=== PATIENT | female | born 1955 | race Caucasian/White ===

== ENCOUNTER → 2016-09-19 | Outpatient (CLI) | payer OTHER ==
[~2016-09-19] MED LIST: IOPAMIDOL (ISOVUE-370) 150 ML BTL IV ONE
== END ==
LOC: FIMAGING 08:48
PROVIDERS: ATTEND Internal Medicine Cardiovascular Disease
DX: I48.91 Unspecified atrial fibrillation (principal); I71.2 Thoracic aortic aneurysm, without rupture; K80.20 Calculus of gallbladder without cholecystitis without obstruction; N28.1 Cyst of kidney, acquired; M43.24 Fusion of spine, thoracic region; R91.8 Other nonspecific abnormal finding of lung field
CPT/HCPCS: Q9967

== ENCOUNTER 2016-09-26 11:02 | Observation (INO) | payer OTHER ==
[2016-09-26] MEDS ORDERED: NS 1,000 ML IV ONE (11:09)
[2016-09-26] MEDS ORDERED: MIDAZOLAM 2 MG/2 ML VIAL IVP ONE (11:09)
--- NOTE | 2016-09-26 11:32 | CPEKG ---
Heart Rate: 70 RR Interval: 857 P-R Interval: 184 QRSD Interval: 96 QT Interval: 396 QTC Interval: 428 P [place]: 55 QRS [place]: 24 T Wave [place]: 62 EKG Severity - BORDERLINE ECG - EKG Impression: SINUS RHYTHM EKG Impression: BORDERLINE INFERIOR Q WAVES EKG Impression: SINUS RHYTHM HAS REPLACED ATRIAL FIBRILLATION FROM PRIOR (01-JUN-2016) Electronically Signed By: Junaid Stovall 26-Sep-2016 16:44:31
[2016-09-26] MEDS ORDERED: fentaNYL 250 MCG/5 ML INJ ONE (11:41)
[2016-09-26] MEDS ORDERED: REMIFENTANIL HCL 1 MG VIAL ONE (11:41)
[2016-09-26 11:42] LABS: % IMMATURE GRANULYOCYTES 0.2 % (0.0-1.1); ABSOLUTE IMMATURE GRANULOCYTES 0.02 10^3/uL (0.00-0.10); ADD DIFF? NO; ADD MORPH? NO; ADD SCAN? NO; ATYPICAL LYMPHOCYTE FLAG 0 (0-99); FRAGMENT RBC FLAG 0 (0-99); HEMATOCRIT 48.5 % (38.0-47.0); LEFT SHIFT FLG 0 (0-99); LIPEMIA HEMOLYSIS FLAG 90 (0-99); MEAN CELL HEMOGLOBIN 32.6 pg (27.9-34.1); MEAN CELL HEMOGLOBIN CONCENTR. 35.1 g/dL (32.4-36.7); MEAN CELL VOLUME 93.1 fL (81.5-99.8); MEAN PLATELET VOLUME 10.5 fL (8.7-11.7); PLATELET CLUMPS FLAG 20 (0-99); PLATELET COUNT 218 10^3/uL (150-400); RED BLOOD CELL COUNT 5.21 10^6/uL (4.18-5.33); RED CELL DISTRIBUTION WIDTH 12.5 % (11.5-15.2)
[2016-09-26] MEDS ORDERED: PROPOFOL/EMULSION 500 MG/50 ML BOTTLE IV ONE (11:42)
[2016-09-26] MEDS ORDERED: ROCURONIUM 50 MG/5 ML VIAL ONE (11:43)
[2016-09-26] MEDS ORDERED: HEPARIN/DEXTROSE 25,000 UNIT/500 ML BAG IV ONE (11:49)
[2016-09-26] MEDS ORDERED: BUPIVACAINE 0.5% 30 ML SDV ONE (11:50)
[2016-09-26] MEDS ORDERED: LIDOCAINE 1% 30 ML SDV ONE (11:50)
[2016-09-26] MEDS ORDERED: HEPARIN 10,000 UNIT/10 ML MDV ONE (11:50)
[2016-09-26 11:51] LABS: INR 0.95 (0.83-1.16); PROTIME(PATIENT) 12.6 SEC (12.0-15.0)
[2016-09-26 11:52] LABS: APTT 26.3 SEC (23.0-38.0)
[2016-09-26 12:00] LABS: ANION GAP 11 mEq/L (8-16); CALCIUM 9.7 mg/dL (8.5-10.4); CARBON DIOXIDE 23 mEq/l (22-31); CHLORIDE 108 mEq/L (97-110); CREATININE 0.7 mg/dL (0.6-1.0); GLOMERULAR FILTRATION RATE > 60; GLUCOSE 93 mg/dL (70-100); POTASSIUM 4.3 mEq/L (3.5-5.2); SODIUM 142 mEq/L (134-144)
[2016-09-26] MEDS ORDERED: SUGAMMADEX SODIUM 200 MG/2 ML VIAL IVP ONE (13:49)
[2016-09-26] MEDS ORDERED: PROTAMINE SULFATE 50 MG/5 ML VIAL IVP ONE (13:49)
[2016-09-26] MEDS ORDERED: ACETAMINOPHEN 325 MG TAB PO PRN (14:13)
[2016-09-26] MEDS ORDERED: OXYCODONE/APAP 5/325 TAB PO PRN (14:13)
[2016-09-26] MEDS ORDERED: ONDANSETRON 4 MG/2 ML VIAL IVP PRN (14:13)
[2016-09-26] MEDS ORDERED: MELATONIN 3 MG TAB PO PRN (14:15)
--- NOTE | 2016-09-26 14:20 | EPPROC ---
Electrophysiology Procedure Note: ELECTROPHYSIOLOGIC STUDY AND BALLOON-CATHETER MEDIATED CRYOABLATION FOR PAROXYSMAL ATRIAL FIBRILLATION Procedures performed: 09806-82 EP evaluation with RA/RV/LA pace/record, with arrhythmia induction 97094-23 EP evaluation with RA/RV pace record, insert/reposition catheter, with arrhythmia induction 15993 Atrial fibrillation ablation Intracardiac echocardiogram Transseptal puncture Fluoroscopy INDICATION: Paroxysmal atrial fibrillation PROCEDURE: The patient arrived in the Electrophysiology Laboratory in the fasting state. The right groin, left groin and right infraclavicular area were prepped and draped in the usual sterile fashion. Anesthesiologist administered general anesthesia Dr. Alhaji Xie . All catheters were placed percutaneously using the Seldinger technique and advanced into position under fluoroscopic guidance. One #7 Kyr[place]z deflectable octapolar electrode catheter was placed in the His-bundle position via the left femoral vein (2mm spacing, IVC electrode for unipolar recordings). This catheter was placed in the coronary sinus after transseptal puncture and later placed in the SVC-R subclavian vein junction to pace the right phrenic nerve during right pulmonary vein ablation. One #8 [place] AcuNaV ultrasound catheter was placed in the left femoral vein and advanced into the right atrium. One #4 [place] sheath was inserted into the left femoral artery via percutaneous technique and used for continuous arterial blood pressure monitoring and intermittent ACT determination. Programmed stimulation was performed from the right atrium, left atrium (CS) and right ventricle. There was no evidence of AV accessory pathway. Intracardiac echo evaluation of the left atrium and pulmonary veins was performed. Baseline ACT was drawn and heparin bolus was administered and heparin drip was started prior to transseptal puncture. ACT was checked every 15 minutes and maintained in the range of 350-400 seconds. One 14Fr short sheath was placed in the right femoral vein. One 8Fr SL1 sheath was advanced into the right atrium via the 14Fr short sheath. Transseptal puncture was performed under intracardiac ultrasound, fluoroscopic and hemodynamic guidance placing the sheath into the left atrium. [place] RF needle ( C0 curve) was used. The mean left atrial pressure was 12 mmHg. Pulmonary vein angiogram was done using SL1 sheath. CT angiography of pulmonary veins was done previously. There were distinct LSPV, LIPV, RSPV and RIPV. The SL1 sheath was exchanged for a CoachMePlustronic Flexcath sheath using an Amplatz stiff guide wire. A 28 mm Cryoballoon catheter with a 20 mm Achieve catheter was placed via the sheath into the left atrium. Intracardiac ultrasound and PV angiograms were used to assist in placing the mapping catheter at the antrum of the pulmonary veins. All pulmonary veins were isolated successfully using cryoballoon ablation using freeze/thaw/freeze cycles at 2-3-minute intervals, with good [id number]-zmkwal of isolation. Coumadin ridge/Ligament of Elliott region was ablated. Pre and post pulmonary vein recordings were measured on the spiral Achieve catheter to ensure complete pulmonary vein isolation. During the right-sided ablation, phrenic nerve pacing was performed to assess the phrenic nerve strength ( manually and with ICE visualization of liver movement during phrenic capture) and the phrenic nerve was intact throughout the right-sided ablation and at the end of the procedure. An esophageal temperature probe (12 electrode, Circa) was placed by the anesthesiologist at the beginning of the procedure. Esophageal temperature was monitored continuously and cryoablation was interrupted if esophageal temperature was <15 C. Esophagus was closest to LSPV, lowest temperature 22C. Cryoapplications 4 total cryoablation time 720s. ICE imaging post ablation was consistent with pre ablation imaging with no changes noted, moreover there was no left atrial/left ventricular thrombus and no pericardial effusion. The catheters were withdrawn. Protamine was given. The sheaths were removed and manual pressure was used for hemostasis. The patient was recovered from anesthesia. There were no complications. The patient was arousable and moving all four extremities at the end of the procedure. CONCLUSIONS: 1. Paroxysmal atrial fibrillation. 2. Successful pulmonary vein isolation procedure (left and right pulmonary vein antrum) using cryoballoon ablation. 3. No apparent complications. Patient Problems: Problems Problem Status Onset Paroxysmal a-fib Acute
--- NOTE | 2016-09-26 14:36 | CPEKG ---
Heart Rate: 76 RR Interval: 789 P-R Interval: 144 QRSD Interval: 102 QT Interval: 424 QTC Interval: 477 P [place]: 48 QRS [place]: 57 T Wave [place]: 76 EKG Severity - NORMAL ECG - EKG Impression: SINUS RHYTHM Electronically Signed By: Junaid Stovall 26-Sep-2016 16:44:37
[2016-09-26 15:05] LABS: ANION GAP 7 mEq/L (8-16); CALCIUM 8.1 mg/dL (8.5-10.4); CARBON DIOXIDE 23 mEq/l (22-31); CHLORIDE 110 mEq/L (97-110); CREATININE 0.7 mg/dL (0.6-1.0); GLOMERULAR FILTRATION RATE > 60; GLUCOSE 140 mg/dL (70-100); MAGNESIUM 1.7 mg/dL (1.6-2.3); POTASSIUM 3.9 mEq/L (3.5-5.2); SODIUM 140 mEq/L (134-144)
[2016-09-26] MEDS ORDERED: FLUTICASONE NASAL 120 SPRAYS/16 GM MDI EACHNARE SCH (21:00)
[2016-09-26 23:41] VITALS: TEMP 98.4
[2016-09-27] MEDS: ENOXAPARIN 80 MG/0.8 ML SYR SC SCH ×2 (04:31→04:32)
[2016-09-27 04:50] LABS: % IMMATURE GRANULYOCYTES 0.3 % (0.0-1.1); ABSOLUTE IMMATURE GRANULOCYTES 0.04 10^3/uL (0.00-0.10); ADD DIFF? NO; ADD MORPH? NO; ADD SCAN? NO; ATYPICAL LYMPHOCYTE FLAG 0 (0-99); FRAGMENT RBC FLAG 0 (0-99); HEMATOCRIT 42.1 % (38.0-47.0); HEMOGLOBIN 14.6 g/dL (12.6-16.3); LEFT SHIFT FLG 0 (0-99); LIPEMIA HEMOLYSIS FLAG 90 (0-99); MEAN CELL HEMOGLOBIN 32.9 pg (27.9-34.1); MEAN CELL HEMOGLOBIN CONCENTR. 34.7 g/dL (32.4-36.7); MEAN CELL VOLUME 94.8 fL (81.5-99.8); MEAN PLATELET VOLUME 10.7 fL (8.7-11.7); PLATELET CLUMPS FLAG 0 (0-99); PLATELET COUNT 222 10^3/uL (150-400); RED BLOOD CELL COUNT 4.44 10^6/uL (4.18-5.33); RED CELL DISTRIBUTION WIDTH 12.8 % (11.5-15.2)
[2016-09-27 04:59] LABS: INR 0.97 (0.83-1.16); PROTIME(PATIENT) 12.8 SEC (12.0-15.0)
[2016-09-27 05:25] LABS: ANION GAP 11 mEq/L (8-16); CALCIUM 9.3 mg/dL (8.5-10.4); CARBON DIOXIDE 20 mEq/l (22-31); CHLORIDE 108 mEq/L (97-110); CREATININE 0.6 mg/dL (0.6-1.0); GLOMERULAR FILTRATION RATE > 60; GLUCOSE 124 mg/dL (70-100); POTASSIUM 4.6 mEq/L (3.5-5.2); SODIUM 139 mEq/L (134-144)
[2016-09-27 05:36] LABS: CK-MB INTERPRETATION POSITIVE (NEGATIVE)
[2016-09-27] MEDS ORDERED: LEVOTHYROXINE 112 MCG TAB PO SCH (06:00)
--- NOTE | 2016-09-27 08:40 | CPEKG ---
Heart Rate: 76 RR Interval: 789 P-R Interval: 180 QRSD Interval: 100 QT Interval: 400 QTC Interval: 450 P [place]: 53 QRS [place]: 56 T Wave [place]: 79 EKG Severity - BORDERLINE ECG - EKG Impression: SINUS RHYTHM EKG Impression: BORDERLINE INFERIOR Q WAVES Electronically Signed By: Junaid Stovall 27-Sep-2016 12:01:40
[2016-09-27] MEDS ORDERED: CETIRIZINE 10 MG TAB PO SCH (09:00)
[2016-09-27] MEDS ORDERED: METOPROLOL SUCCINATE XR 50 MG TAB PO SCH (09:00)
--- NOTE | 2016-09-27 09:19 | ECHO ---
[id number] + + [address] : : [place] [address] : : [phone] + Adult Echocardiographic Report + -----+ :Name: KIMBERLEY PATINO WStudy Date: 09/27/2016 07:43 AM : : Hospital Admission Number: [id number] Location : 247: :: 1955 Gender: Female Height: 78 in : :Age: 61 yrs Race: WH Weight: 160 lb : :Reason For Study: F/U post EP study : : BSA: 2.1 meters2 : + -----+ MMode/2D Measurements \T\ Calculations IVSd: 0.77 cm LVIDd: 4.4 cm EDV(Teich): 86.0 ml MV Diam: 3.1 cm LVPWd: 0.83 cm Ao root diam: LVOT diam: 2.1 cmLVLd ap4: 7.8 cm SV(MOD-sp4): 3.9 cm LVOT area: EDV(MOD-sp4): 52.0 ml LA dimension: 3.4 cm2 71.0 ml 4.4 cm LVLs ap4: 6.2 cm ESV(MOD-sp4): 19.0 ml EF(MOD-sp4): 73.2 % Normal Measurement Values: + + :LVIDd (3.5-5.7cm) IVSd (0.6-1.1cm) LVPWd (0.6-1.1cm) Aortic Root (2.0-3.7cm)Left Atrium (1.5-4.0cm): :LV Vol(d) (76-115ml) LV Vol(s) (29-48ml) [place]ec Fraction (50-65%)PV Silas (0.6- 1.2m/s) TV Silas (0.4-1.0m/s) : :MV E Silas (0.8-1.0m/s)MV A Silas (0.3-1.0m/s)LVOT Silas (0.7-1.2m/s) Asc Ao Silas ( 0.9-1.8m/s) : + + Doppler Measurements \T\ Calculations MV E max silas: MV V2 mean: Ao mean PG: AI max silas: 71.8 cm/sec 56.2 cm/sec 7.7 mmHg 440.9 cm/sec MV A max silas: MV mean PG: Ao V2 mean: AI max P.1 cm/sec 1.4 mmHg 133.0 cm/sec 77.7 mmHg MV E/A: 0.90 MV V2 VTI: 22.8 cm Ao V2 VTI: AI dec slope: MV area (1 diam): 40.7 cm 272.4 cm/sec2 7.5 cm2 RODRIGO(I,D): 2.4 cm2 AI P1/2t: 474.1 msec MVA(VTI): 4.3 cm2 MV Flow area (1diam): 7.5 cm2 LV V1 max: MR max silas: MR(RF 1 diam): SV(MV 1 diam): 112.4 cm/sec 513.3 cm/sec 11.7 % 171.2 ml LV V1 max PG: MR max PG: SI(MV 1 diam): 5.1 mmHg 105.4 mmHg 83.4 ml/m2 LV V1 mean PG: SV(LVOT): 97.7 ml 3.3 mmHg LV V1 mean: 86.6 cm/sec LV V1 VTI: 28.5 cm TR max silas: RF(MV,Ao)(1 diam): 203.6 cm/sec -1.8 TR max PG: RF(MV,LVOT)(1diam): 16.6 mmHg 0.43 RAP systole: 5.0 mmHg RVSP(TR): 21.6 mmHg Left Ventricle The left ventricle is normal in size. There is normal left ventricular wall thickness. Left ventricular systolic function is normal. Ejection Fraction = 65-70%. No regional wall motion abnormalities noted. Right Ventricle The right ventricle is normal in size and function. Atria The left atrium is mildly dilated. Right atrial size is normal. The interatrial septum is intact with no evidence for an atrial septal defect. Mitral Valve The mitral valve is normal in structure and function. There is no evidence of mitral valve prolapse. There is no mitral valve stenosis. There is mild to moderate mitral regurgitation. Tricuspid Valve Normal tricuspid valve. There is mild tricuspid regurgitation. Right ventricular systolic pressure is normal. Aortic Valve The aortic valve is trileaflet. The aortic valve opens well. There is no aortic stenosis. Grade 3 aortic regurgitation. Moderate AI by color flow doppler (LV normal size). Pulmonic Valve The pulmonic valve is normal in structure and function. There is no pulmonic valvular regurgitation. Great Vessels The aortic root is normal size. Mildly dilated ascending aorta. Pericardium/Pleural There is no pericardial effusion. Conclusion A complete two-dimensional transthoracic echocardiogram was performed (2D, M-mode, Doppler and color flow Doppler). Lefft ventricular systolic function is normal. Ejection Fraction = 65-70%. The left atrium is mildly dilated. There is mild to moderate mitral regurgitation. There is mild tricuspid regurgitation. Right ventricular systolic pressure is normal. Mildly dilated ascending aorta. Moderate AI . There is no pericardial effusion. Final Reading Physician: Sabino Ma MD electronically signed on 09/27/2016 09:18 AM Ordering Physician: Sabino Ma Performed By: Adamaris Gallagher, [facility]
[2016-09-27 10:08] VITALS: BP 118/53; PULSE 66; RESP 18; O2SAT 92
--- NOTE | 2016-09-27 12:52 | GDS ---
[f rep st] DISCHARGE SUMMARY DISCHARGE DIAGNOSES: 1. Paroxysmal atrial fibrillation, status post cryoballoon ablation. 2. Ascending aortic aneurysm, measuring 4.4 cm. 3. Moderate aortic insufficiency. HOSPITAL COURSE: For a detailed H and P, please see prior dictation. Briefly, the patient is a 61- year-old female with a history of paroxysmal atrial fibrillation which is symptomatic. Her events w ould last anywhere between 6 and 8 hours. She had a trial of metoprolol, but was not interested and antiarrhythmic therapy. Ultimately, she decided to proceed with an EP study and ablation which was performed by Dr. Sabino Ma on 09/26/2016. She did not have any complications associated with the procedure except for some very minor bleeding of her right groin a few hours postprocedure. There w as no evidence of hematoma or infection of the groin site the following morning. She was monitored on telemetry and has remained in normal sinus rhythm. Her troponin peaked at 12. An echocardiogram the day of discharge revealed preserved LV function with an ejection fraction of 65% to 70% with no evidence of pericardial effusion. There is mild to moderate mitral regurgitation, mild tricuspid r egurgitation, moderate AI, and a mildly dilated ascending aorta. PHYSICAL EXAMINATION: GENERAL: Patient appears in no acute distress. VITAL SIGNS: Blood pressure 118/53, heart rate 66, respirations 92% on room air. Afebrile. LUNGS: Clear to auscultation. No wheezes, rhonchi, or crackles auscultated. CARDIAC: Regular rate and rhythm without any murmurs, rubs, or gallops appreciated. EXTREMITIES: Bilateral groins where access was obtained for the EP s tudy are clean, intact without any evidence of infection or hematoma. DISCHARGE MEDICATIONS: Eliquis 5 mg twice daily, PreserVision daily, Zyrtec 10 mg daily, Flonase 2 sprays daily, herbal supplement daily, Synthroid 112 mcg daily, melatonin 3 mg at bedtime, metoprolo l 50 mg daily, multivitamin daily, fish oil 1000 mg daily. Her medications are unchanged from admis xiomy. PLAN: The patient is currently stable and ready for discharge home. She has been given groin preca utions. She will follow up with Dr. Sabino Ma in 2 weeks as scheduled. /[id number]/MODL
--- NOTE | 2016-09-30 09:21 | ECHO ---
[id number] [id number] + + [address] : : [facility] [address] : : [phone] + + Transesophageal Echocardiographic Report + ----+ :Name: KIMBERLEY PATINO WStudy Date: 09/26/2016 12:22 PM : : Hospital Admission Number: [id number] Location : EP: :: 1955 Gender: Female : :Age: 61 yrs Race: WH : :Reason For Study: Eval LV Fx : :History: Pre EP : + ----+ Left Ventricle The left ventricular ejection fraction is normal. Atria Injection of contrast documented no interatrial shunt. The interatrial septum is intact with no evidence for an atrial septal defect. No thrombus is detected in the left atrial appendage. No left atrial mass or thrombus visualized. Mitral Valve The mitral valve is normal. There is mild to moderate mitral regurgitation. Tricuspid Valve There is trace to mild tricuspid regurgitation. Aortic Valve The aortic valve is trileaflet. There is no aortic stenosis. Moderate to severe aortic regurgitation. Pulmonic Valve The pulmonic valve is normal in structure and function. There is no pulmonic valvular regurgitation. Vessels The ascending AO measures 4.3cm. Pericardium There is no pericardial effusion. Conclusion A 2D transesophageal echocardiogram with color flow Doppler was performed. The left ventricular ejection fraction is normal. Injection of contrast documented no interatrial shunt. The interatrial septum is intact with no evidence for an atrial septal defect. No thrombus is detected in the left atrial appendage. No left atrial mass or thrombus visualized. There is mild to moderate mitral regurgitation. There is trace to mild tricuspid regurgitation. The aortic valve is trileaflet. Moderate to severe aortic regurgitation. The ascending AO measures 4.3cm. Final Reading Physician: Sabino Ma MD electronically signed on 09/30/2016 09:20 AM Ordering Physician: Sabino Ma Performed By: Sabino Ma MD
== END 2016-09-27 11:30 | disposition home or self-care (01) ==
LOC: FCATH 11:02 → F2N 14:45 → INTOOBSV 14:45
PROVIDERS: ADMIT Internal Medicine Cardiovascular Disease; ATTEND Internal Medicine Cardiovascular Disease
PROC: B246ZZ4 Ultrasonography of Right and Left Heart, Transesophageal (ICD-10-PCS; principal; 2016-09-26)
PROC: 02K83ZZ Map Conduction Mechanism, Percutaneous Approach (ICD-10-PCS; principal; 2016-09-26)
PROC: 025T3ZZ Destruction of Left Pulmonary Vein, Percutaneous Approach (ICD-10-PCS; principal; 2016-09-26)
PROC: 025S3ZZ Destruction of Right Pulmonary Vein, Percutaneous Approach (ICD-10-PCS; principal; 2016-09-26)
DX: I48.0 Paroxysmal atrial fibrillation (principal)
CPT/HCPCS: 93005; 93306; 93312; 93609; 93656; 93662; C1731; C1766; G0378; C1730; C1732; C1733; C1759; C1893; J1644; J1650; J2250; J2704; J2720; J3010

== ENCOUNTER 2017-04-24 10:37 | Observation (INO) | payer OTHER ==
[2017-04-24] MEDS ORDERED: NS 1,000 ML IV ONE (10:41)
--- NOTE | 2017-04-24 11:27 | CPEKG ---
Heart Rate: 139 RR Interval: 432 QRSD Interval: 92 QT Interval: 324 QTC Interval: 493 QRS [place]: 49 T Wave [place]: 40 EKG Severity - ABNORMAL ECG - EKG Impression: ATRIAL FIBRILLATION Electronically Signed By: Sabino Ma 24-Apr-2017 20:13:06
[2017-04-24 11:49] LABS: % IMMATURE GRANULYOCYTES 0.2 % (0.0-1.1); ABSOLUTE IMMATURE GRANULOCYTES 0.01 10^3/uL (0.00-0.10); ADD DIFF? NO; ADD MORPH? NO; ADD SCAN? NO; ATYPICAL LYMPHOCYTE FLAG 0 (0-99); FRAGMENT RBC FLAG 10 (0-99); HEMATOCRIT 41.4 % (38.0-47.0); HEMOGLOBIN 14.7 g/dL (12.6-16.3); LEFT SHIFT FLG 0 (0-99); LIPEMIA HEMOLYSIS FLAG 90 (0-99); MEAN CELL HEMOGLOBIN 33.8 pg (27.9-34.1); MEAN CELL HEMOGLOBIN CONCENTR. 35.5 g/dL (32.4-36.7); MEAN CELL VOLUME 95.2 fL (81.5-99.8); PLATELET CLUMPS FLAG 10 (0-99); PLATELET COUNT 199 10^3/uL (150-400); RED BLOOD CELL COUNT 4.35 10^6/uL (4.18-5.33); RED CELL DISTRIBUTION WIDTH 12.9 % (11.5-15.2)
[2017-04-24 12:00] LABS: INR 1.01 (0.83-1.16); PROTIME(PATIENT) 13.2 SEC (12.0-15.0)
[2017-04-24 12:11] LABS: ANION GAP 12 mEq/L (8-16); CALCIUM 9.4 mg/dL (8.5-10.4); CARBON DIOXIDE 21 mEq/l (22-31); CHLORIDE 108 mEq/L (97-110); CREATININE 0.7 mg/dL (0.6-1.0); GLOMERULAR FILTRATION RATE > 60; GLUCOSE 85 mg/dL (70-100); POTASSIUM 4.5 mEq/L (3.5-5.2); SODIUM 141 mEq/L (134-144)
[2017-04-24] MEDS ORDERED: HEPARIN/DEXTROSE 25,000 UNIT/500 ML BAG ONE (13:18)
[2017-04-24] MEDS ORDERED: BUPIVACAINE 0.5% 30 ML SDV ONE (13:18)
[2017-04-24] MEDS ORDERED: HEPARIN 10,000 UNIT/10 ML MDV ONE (13:18)
[2017-04-24] MEDS ORDERED: LIDOCAINE 1% 300 MG/30 ML SDV ONE (13:18)
--- NOTE | 2017-04-24 13:18 | PDHPUP ---
History & Physical Update H&P update statement: This history and physical update is based on an assessment of the patient which was completed after admission or registration (within 24 hours), but prior to the surgery/procedure. H&P update: H&P reviewed & patient examined, no change in patient's condition since H&P completed
[2017-04-24] MEDS ORDERED: MIDAZOLAM 2 MG/2 ML VIAL ONE (14:00)
[2017-04-24] MEDS ORDERED: IOPAMIDOL (ISOVUE-300) 100 ML BTL ONE (14:24)
[2017-04-24] MEDS ORDERED: fentaNYL 100 MCG/2 ML INJ ONE ×2 (14:36→15:49)
[2017-04-24] MEDS ORDERED: PROPOFOL/EMULSION 500 MG/50 ML BOTTLE IV ONE (14:36)
--- NOTE | 2017-04-24 15:09 | PDANEPAE ---
ANE Past Medical History - Cardiovascular History Hx Hypertension: Yes Hx Arrhythmias: Yes Hx CHF / Valvular Disease: Yes - Pulmonary History Hx Sleep Apnea: No ANE Review of Systems Review of Systems: ANE Patient History - Allergies Allergies/Adverse Reactions: aspirin Allergy (Intermediate, Verified 06/01/16 13:47) Hives Penicillins Allergy (Unknown, Verified 06/01/16 13:47) Sulfa (Sulfonamide Antibiotics) Allergy (Unknown, Verified 06/01/16 13:47) - Home Medications Home Medications: Cetirizine [ZyrTEC 10 mg (*)] 10 mg PO DAILY 06/01/16 [Last Taken 04/23/17] Fluticasone Nasal [Flonase Nasal [place]] 2 sprays NASAL HS 06/01/16 [Last Taken 04/23/17] Levothyroxine [Synthroid 112 mcg (*)] 112 mcg PO DAILY06 06/01/16 [Last Taken ] Multivitamins [Multivitamin (*)] 1 tab PO DAILY 06/01/16 [Last Taken 04/23/17] Apixaban [Eliquis] 5 mg PO BID 09/26/16 [Last Taken 04/21/17] C/E/Zn/Cu/OM3/DHA/EPA/LUT/ZEAX [Preservision Areds 2 Softgel] 1 each PO DAILY [Last Taken 04/23/17] Herbals/Supplements -Info Only 1 ea PO DAILY 09/26/16 [Last Taken 04/23/17] Metoprolol Succinate Xr [Toprol Xl 50 mg (*)] 50 mg PO DAILY 09/26/16 [Last Taken 04/23/17] Propafenone HCl Sr [Rythmol Sr 225mg (*)] 225 mg PO BID 04/17/17 [Last Taken 11/29] - Smoking Hx Smoking Status: Never smoked ANE Labs/Vital Signs - Labs Result Diagrams: 04/24/17 11:41 04/24/17 11:41 - Vital Signs Height: 168 cm Weight: 72.6 kg ANE Physical Exam - Airway Neck exam: decreased ROM Mallampati Score: Class 3 Mouth exam: normal dental/mouth exam - Pulmonary Pulmonary: no respiratory distress, no rales or rhonchi, clear to auscultation - Cardiovascular Cardiovascular: regular rate and rhythym, no murmur, rub, or gallop - ASA Status ASA Status: III
[2017-04-24] MEDS ORDERED: SUGAMMADEX SODIUM 200 MG/2 ML VIAL IVP ONE (15:50)
[2017-04-24] MEDS ORDERED: PHENYLEPHRINE 10 MG/ML SDV ONE (15:50)
[2017-04-24] MEDS ORDERED: epHEDrine SULFATE 10 MG/ML SYR ONE (15:50)
[2017-04-24] MEDS ORDERED: ONDANSETRON 4 MG/2 ML VIAL ONE (15:50)
[2017-04-24] MEDS ORDERED: ROCURONIUM 50 MG/5 ML VIAL ONE (15:50)
[2017-04-24] MEDS ORDERED: PROTAMINE SULFATE 50 MG/5 ML VIAL IVP ONE (16:59)
[2017-04-24] MEDS ORDERED: ACETAMINOPHEN 325 MG TAB PO PRN (17:23)
[2017-04-24] MEDS ORDERED: ONDANSETRON 4 MG/2 ML VIAL IVP PRN (17:23)
[2017-04-24] MEDS ORDERED: OXYCODONE/APAP 5/325 TAB PO PRN (17:23)
[2017-04-24] MEDS ORDERED: ATROPINE SULFATE 1 MG/10 ML SYR ONE (17:32)
[2017-04-24 18:33] LABS: ANION GAP 7 mEq/L (8-16); CALCIUM 8.4 mg/dL (8.5-10.4); CARBON DIOXIDE 22 mEq/l (22-31); CHLORIDE 109 mEq/L (97-110); CREATININE 0.7 mg/dL (0.6-1.0); GLOMERULAR FILTRATION RATE > 60; GLUCOSE 84 mg/dL (70-100); MAGNESIUM 1.8 mg/dL (1.6-2.3); POTASSIUM 4.1 mEq/L (3.5-5.2); SODIUM 138 mEq/L (134-144)
[2017-04-24] MEDS ORDERED: FLUTICASONE NASAL 120 SPRAYS/16 GM MDI EACHNARE SCH (21:00)
--- NOTE | 2017-04-24 21:14 | EPPROC ---
Electrophysiology Procedure Note: ELECTROPHYSIOLOGIC STUDY AND CATHETER MEDIATED ABLATION FOR PAROXYSMAL ATRIAL FIBRILLATION Procedures performed: 25663-92 EP evaluation with RA/RV/LA pace/record, with arrhythmia induction 50046-75 EP evaluation with RA/RV pace record, insert/reposition catheter, with arrhythmia induction 05519 Atrial fibrillation ablation 11396 3D mapping Intracardiac echocardiogram Transseptal puncture Fluoroscopy INDICATION: Paroxysmal atrial fibrillation Prior CB ablation for AFIB at our institution with recurrent AFIB PROCEDURE: The patient arrived in the Electrophysiology Laboratory in the fasting state. The right groin, left groin and right infraclavicular area were prepped and draped in the usual sterile fashion. Anesthesiologist administered general anesthesia Dr. Ronen Molina . All catheters were placed percutaneously using the Seldinger technique and advanced into position under fluoroscopic guidance. One #7 [place] deflectable octapolar electrode catheter was placed in the His-bundle position via the left femoral vein This catheter was placed in the coronary sinus after transseptal puncture. One #8 [place] AcuNaV ultrasound catheter was placed in the left femoral vein and advanced into the right atrium. One #4 [place] sheath was inserted into the left femoral artery via percutaneous technique and used for continuous arterial blood pressure monitoring and intermittent ACT determination. Programmed stimulation was performed from the right atrium, left atrium (CS) and right ventricle. Intracardiac echo evaluation of the left atrium and pulmonary veins was performed. Baseline ACT was drawn and heparin bolus was administered and heparin drip was started prior to transseptal puncture. ACT was checked every 15 minutes and maintained in the range of 350-400 seconds. One SL1 sheath (8.5 Fr ) was inserted into the right femoral vein and advanced into the right atrium. Transseptal puncture was performed under intracardiac ultrasound, fluoroscopic and hemodynamic guidance placing the sheath into the left atrium. [place] RF needle (C0 curve) was used. One #8 [place] quadrapolar electrode catheter (1mm-5mm-2mm spacing) with saline irrigated 3.5mm tip electrode (CordTradiioter Thermo-Cool catheter) and location sensor for the O4IT 3D mapping system was inserted through the transseptal sheath and positioned outside the orifice of the left superior pulmonary vein. A 15-25 mm variable Lasso catheter was placed inside the LSPV antrum. At baseline, the rhythm was sinus rhythm with frequent PVC. . Conventional pulmonary vein angiography was done using SL1 sheaths. PV anatomy : LSPV, LIPV, RSPV, RIPV.. A high-resolution electroanatomical map of the left atrium and pulmonary veins was obtained during sinus rhythm using Pentaray catheter. Intracardiac ultrasound was used to assist in placing the mapping catheter outside the antrum of the pulmonary veins. Map showed re connection of LSPV and LIPV. RSPV and RIPV were isolated but there was persistent voltage in the yoshi. An esophageal temperature probe (12 electrode, Circa) was placed by the anesthesiologist at the beginning of the procedure. Esophageal temperature was monitored continuously and RF ablation was interrupted if there was a temperature rise >0.5 C. The antrum of the left pulmonary veins was then isolated by radiofrequency applications (power 20-25 W). Ablation needed to be performed anterior to LSPV and LIPV and at LA roof. The antrum of the right pulmonary veins was already isolated but we elected to ablate anterior to and at the yoshi of the RPV ( power 20-25 W). Bidirectional (entrance and exit) conduction block was confirmed. High resolution voltage map post ablation confirmed all 4 PV remained isolated. ICE imaging was consistent with pre ablation imaging; moreover it showed no pericardial effusion or LA/ANCELMO thrombus at the end of the procedure. The catheters were withdrawn. SL1 sheaths were changed to 9 Fr short sheaths. Protamine was given. The sheaths were removed and manual pressure was used for hemostasis. The patient was recovered from anesthesia. There were no complications. CONCLUSIONS: 1. Paroxysmal atrial fibrillation. 2. Successful pulmonary vein re-isolation procedure (left and right pulmonary vein antrum) 3. No apparent complications. Patient Problems: Problems Problem Status Onset Paroxysmal a-fib Acute
[2017-04-24] MEDS ORDERED: ENOXAPARIN 80 MG/0.8 ML SYR SC SCH (23:59)
[2017-04-25 05:54] LABS: % IMMATURE GRANULYOCYTES 0.1 % (0.0-1.1); ABSOLUTE IMMATURE GRANULOCYTES 0.01 10^3/uL (0.00-0.10); ADD DIFF? NO; ADD MORPH? NO; ADD SCAN? NO; ATYPICAL LYMPHOCYTE FLAG 0 (0-99); FRAGMENT RBC FLAG 0 (0-99); HEMATOCRIT 39.1 % (38.0-47.0); HEMOGLOBIN 13.7 g/dL (12.6-16.3); LEFT SHIFT FLG 0 (0-99); LIPEMIA HEMOLYSIS FLAG 90 (0-99); MEAN CELL HEMOGLOBIN 34.1 pg (27.9-34.1); MEAN CELL VOLUME 97.3 fL (81.5-99.8); MEAN PLATELET VOLUME 9.9 fL (8.7-11.7); PLATELET CLUMPS FLAG 0 (0-99); PLATELET COUNT 171 10^3/uL (150-400); RED BLOOD CELL COUNT 4.02 10^6/uL (4.18-5.33); RED CELL DISTRIBUTION WIDTH 12.9 % (11.5-15.2)
[2017-04-25 05:58] LABS: INR 1.04 (0.83-1.16); PROTIME(PATIENT) 13.5 SEC (12.0-15.0)
[2017-04-25] MEDS ORDERED: LEVOTHYROXINE 112 MCG TAB PO SCH (06:00)
[2017-04-25 06:08] LABS: ANION GAP 8 mEq/L (8-16); CALCIUM 8.6 mg/dL (8.5-10.4); CARBON DIOXIDE 21 mEq/l (22-31); CHLORIDE 110 mEq/L (97-110); CREATININE 0.7 mg/dL (0.6-1.0); GLOMERULAR FILTRATION RATE > 60; GLUCOSE 90 mg/dL (70-100); POTASSIUM 4.3 mEq/L (3.5-5.2); SODIUM 139 mEq/L (134-144)
[2017-04-25 06:20] LABS: CREATINE KINASE-MB FRACTION 2.23 ng/mL (0.00-3.19)
--- NOTE | 2017-04-25 08:20 | POSTANESTH ---
Post Anesthetic Evaluation Cardiovascular Status: Normal, Stable Respiratory Status: Normal, Stable Level of Consciousness/Mental Status: Can Participate in Eval Pain Control: Adequate, Prn Tx Ordered Nausea/Vomiting Control: Adequate, Prn Tx Ordered Complications Possibly Related to Anesthesia: None Noted
[2017-04-25 08:33] VITALS: BP 114/54; PULSE 89
[2017-04-25 08:35] VITALS: RESP 22; TEMP 98.3; O2SAT 100
[2017-04-25] MEDS ORDERED: FLU VACC QS 2017-18 (3YR+)/PF 0.5 ML SYR (FLUARIX QUAD) IM ONE (08:36)
[2017-04-25] MEDS ORDERED: CETIRIZINE 10 MG TAB PO SCH (09:00)
[2017-04-25] MEDS ORDERED: METOPROLOL SUCCINATE XR 50 MG TAB PO SCH (09:00)
--- NOTE | 2017-04-25 09:16 | CPEKG ---
Heart Rate: 66 RR Interval: 909 P-R Interval: 164 QRSD Interval: 104 QT Interval: 416 QTC Interval: 436 P [place]: 25 QRS [place]: 55 T Wave [place]: 82 EKG Severity - ABNORMAL ECG - EKG Impression: SINUS RHYTHM EKG Impression: PROBABLE INFERIOR INFARCT, OLD Electronically Signed By: Sabino Ma 25-Apr-2017 10:50:48
--- NOTE | 2017-04-25 10:41 | ECHO ---
[email or web address] [address] [address] Main: [phone] Fax: Transthoracic Echocardiogram Name: KIMBERLEY PATINO MR#: [id number] Study Date: 04/25/2017 Study Time: 07:56 AM Date of : 1955 Age: 62 year(s) Height: 167.6 cm (66 in.) Weight: 70.31 kg (155 lb.) BSA: 1.79 m2 Gender: Female Examination: Echo Indication: Image Quality: Adequate Contrast: Requested by: Sabino Ma BP: 111 mmHg/63 mmHg Heart Rate: Rhythm: Normal sinus rhythm Indication: Procedure Staff Ticket Agent: Cindi Batista Reading Physician: Aditya Gtz Requesting Provider: Conclusions: Preserved left ventricular systolic function with a left ventricular end-diastolic dimension of 4.5 cm. Moderate aortic regurgitation moderate mitral regurgitation borderline right ventricular systolic pressure with left atrial enlargement. Mild dilatation of the ascending aorta. Consider transesophageal echocardiogram to further delineate mitral valve aortic valve pathology. Measurements: Chambers Valvular Assessment AV/MV Valvular Assessment TV/PV Normal Normal Normal Name Value Range Name Value Range Name Value Range Ao Marilyn (MM): 3.3 cm (2.2 cm-3.7 AV Vmax: 1.52 m/s (1 m/s-1.7 TR Vmax: 2.51 mm/s ( - ) cm) m/s) TR PGmax: 25 mmHg ( - ) IVSd (2D): 1.0 cm (0.6 cm-1.1 AV maxP mmHg ( - ) syst. PAP: 30 mmHg ( - ) cm) AR (PHT): 510 ms ( - ) PV Vmax: 0.82 m/s (0.6 m/s-0.9 LVDd (2D): 4.5 cm (3.9 cm-5.3 MV E Vmax: 0.92 m/s ( - ) m/s) cm) MV A Vmax: 0.60 m/s ( - ) PV PGmax: 3 mmHg ( - ) LVDs (2D): 2.6 cm (2.1 cm-4 MV E/A: 1.53 ( - ) cm) LVPWd (2D): 0.8 cm ( - ) LVOTd 1.9 cm 1.9 cm mm LVEF (BP): 67 % (>=55 %) RVDd(2D): 2.6 cm (1.9 cm-3.8 cmmm) Continued Measurements: Chambers Valvular Assessment AV/MV Valvular Assessment TV/PV Name Value Name Value Name Value LADs Lon.7 cm MV DecTime: 211 m/s CVP (est.): 5 mmHg Patient: KIMBERLEY PATINO Study Date: 04/25/2017 Page 1 of 2 07:56 AM LA Area: 20.8 cm2 MV E' Septal: 0.06 m/s LA Volume: 67 ml MV E/E' Septal: 15.20 LA Volume Index: 37.4 ml/m2 MV E/E' Lateral: 19.30 RA Area: 14.0 cm2 AR Vmax: 4.38 cm/s AR ERO: 0.6 cm2 AR PISA radius: 0.8 cm AR Reg. Volume: 124.0 ml AR Reg. Fraction: 194 % AR VTI: 210.0 cm Additional Vessels Name Value Ao Ascendin.0 cm Findings: Left Ventricle: Normal size left ventricle. No LV hypertrophy. Normal global systolic LV function. EF is 67 %. No regional wall motion abnormality. Right Ventricle: Normal size right ventricle. Left Atrium: The left atrium is mildly dilated. Right Atrium: The right atrium is normal in size. Mitral Valve: There is mild thickening of the mitral valve leaflets. Moderate mitral valve regurgitation is present. Aortic Valve: The aortic valve is normal in appearance and function. The aortic valve is tri-leaflet. Moderate aortic valve regurgitation is present. Tricuspid Valve: The tricuspid valve is normal in appearance and function. Mild tricuspid regurgitation is present. Borderline elevated pumonary artery pressure. Pulmonic Valve: The pulmonic valve is normal in appearance and function. Trivial pulmonic valve regurgitation. Aorta: The aorta is normal. Normal size aortic root measuring 3.3 cm. Mildly dilated ascending aorta measuring 4.0 cm. IVC: No foreign body in inferior vena cava. Pericardium: Trivial anterior pericardial effusion. There is pericardial fat. (No Signature Object) Patient: KIMBERLEY PATINO Study Date: 04/25/2017 Page 2 of 2 07:56 AM [id number]
[2017-04-25] MEDS ORDERED: APIXABAN 5 MG TAB PO SCH (11:15)
--- NOTE | 2017-04-25 11:32 | ASMTCMCOM ---
CM Note CM Note Notes: Patient is s/p ablation with Dr Ma. She is doing well and I don't anticipate any d/c needs. No therapy evals were ordered, and patient lives independently with her . CM available if needs change. Date Signed: 04/25/2017 11:31 AM Electronically Signed By:Anabela Cornell RN
--- NOTE | 2017-04-25 16:16 | ASDISCHSUM ---
Discharge Information Plan Status:Home with No Needs Medically Cleared to Leave: Discharge Date:04/25/2017 01:02 PM CM D/C Disposition:Home, Routine, Self-Care ADT D/C Disposition:Home, Routine, Self-Care Projected Discharge Date:04/25/2017 01:02 PM Transportation at D/C:Family Discharge Delay Reason: Follow-Up Date:04/25/2017 01:02 PM Discharge Slot: Final Diagnosis: Placement Information Patient Contact Information Contact Name:LARISA Relationship: Address:[address] City:[place] Alternate Phone: [facility]/Zip Code:[place] [address] Email: Financial Information Financial Class:HMO and PPO Plans Primary Plan Desc:[facility] Primary Plan Number:[id number] Secondary Plan Desc: Secondary Plan Number: Assessment Information [facility] CM Progress Note CM Note CM Note Notes: Patient is s/p ablation with Dr Ma. She is doing well and I don't anticipate any d/c needs. No therapy evals were ordered, and patient lives independently with her . CM available if needs change. Date Signed: 04/25/2017 11:31 AM Electronically Signed By:Anabela Cornell RN Intervention Information Intervention Type:*Incorrect Registration Date of Service:04/25/2017 12:04 PM Patient Type:Observation Staff Member:ALEXANDRO Orellana Kerry Hours: Discipline: Severity: Comment:
--- NOTE | 2017-04-25 22:15 | ECHO ---
[email or web address] [place] [id number] Main: [phone] Fax: Transesophageal Echocardiography Name: KIMBERLEY PATINO MR#: [id number] Study Date: 04/24/2017 Study Time: 02:34 PM Date of : 1955 Age: 62 year(s) Height: ( ) Weight: ( ) BSA: Gender: Female Examination: IGNACIO Indication: Eval for thrombus pre ablation Image Quality: Contrast: Requested by: Sabino Ma Heart Rate: Rhythm: BP: / Procedure Staff Multifocal Button Generator: Reading Physician: Sabino Ma Requesting Provider: IGNACIO Exam Details Conclusions: Normal global systolic LV function. An agitated saline study was performed and was negative for intracardiac shunting. No thrombus in left appendage. Moderate mitral valve regurgitation is present. Central jet of AI due to dilated aorta.. Mildly dilated ascending aorta.. Measurements: Chambers Valvular Assessment AV/MV Valvular Assessment TV/PV Normal Normal Normal Name Value Range Name Value Range Name Value Range Additional Measurements: Findings: Left Ventricle: Normal global systolic LV function. Left Atrium: An agitated saline study was performed and was negative for intracardiac shunting. Left Atrial Appendage: No thrombus in left appendage. Mitral Valve: Moderate mitral valve regurgitation is present. Patient: KIMBERLEY PATINO Study Date: 04/24/2017 Page 1 of 2 02:34 PM Aortic Valve: The aortic valve is tri-leaflet. Central jet of AI due to dilated aorta.. Aorta: Mildly dilated ascending aorta.. l1n (No Signature Object) Patient: KIMBERLEY PATINO Study Date: 04/24/2017 Page 2 of 2 02:34 PM [id number]
--- NOTE | 2017-04-26 04:25 | GDS ---
[f rep st] DISCHARGE SUMMARY DISCHARGE DIAGNOSES: 1. Paroxysmal atrial fibrillation, status post ablation. 2. Aortic insufficiency. 3. Mitral regurgitation. 4. Thoracic ascending aortic dilation. BRIEF HISTORY: This is a 62-year-old woman, who underwent atrial fib ablation about 6 months ago. She has been experiencing increasing episodes of atrial fibrillation up to daily episodes recently; have been recorded on her Al[employer] monitor. This is despite therapy with Rythmol. HOSPITAL COURSE: Dr. Ma performed successful pulmonary vein re-isolation. She has done well overnight. Telemetry demonstrates sinus rhythm with episodes of PACs and PVCs. She reports no palpitations, no chest pain, no shortness of breath. She has not had any bleeding at her groin sites. TESTING DONE: Echocardiogram: Ejection fraction 67% without any wall motion abnormalities. Moderate MR and AI. Ascending aorta is 4 cm. There is trivial pericardial effusion. EKG demonstrates sinus rhythm. LABORATORY WORK: WBC 6.83, hemoglobin 13.7, hematocrit 39.1, platelets 171. PT 13.5, INR 1.04. Sodium 139, potassium 4.3, chloride 110, bicarb 21, BUN 12, creatinine 0.7, glucose 90. CK 51, CK-MB 2.23, troponin 0.250. PHYSICAL EXAMINATION: VITAL SIGNS: Blood pressure is 111/55, pulse is 66, respirations 12. O2 saturation is 95% on room air. Temperature is 36.8. GENERAL: She is alert and oriented, lying in bed, in no acute distress. CARDIAC: Regular rate and rhythm with a 2/6 systolic murmur. No rub or gallop. LUNGS: Clear to auscultation. ABDOMEN: Soft and nontender. SKIN: Groin sites are without bleeding or hematoma. No ecchymosis. EXTREMITIES: Lower extremities are warm. No discoloration. No lower extremity edema. Bilateral +1 pedal pulses. DISCHARGE INSTRUCTIONS: Patient was given verbal and written postablation activity restrictions. DISCHARGE MEDICATIONS: Please see discharge medication reconciliation. Of note , Eliquis was restarted. She will take omeprazole for 6 weeks post ablation. Toprol was cut in half to 25 mg. do to low blood pressure and she will continue this due to her aortic aneurysm. Rythmol was not restarted. FOLLOWUP: She has a followup with Dr. Ma on May 17 at 9:45. She has an echocardiogram scheduled on May 04 to evaluate trivial pericardial effusion, and she will call Dr. Balderrama to schedule a followup for her valve disease. /[id number]/MODL MTDD
== END 2017-04-25 13:02 | disposition home or self-care (01) ==
LOC: FCATH 10:37 → F2N 17:30 → INTOOBSV 17:30
PROVIDERS: ADMIT Internal Medicine Cardiovascular Disease; ATTEND Internal Medicine Cardiovascular Disease
PROC: 025T3ZZ Destruction of Left Pulmonary Vein, Percutaneous Approach (ICD-10-PCS; principal; 2017-04-24)
PROC: B2161ZZ Fluoroscopy of Right and Left Heart using Low Osmolar Contrast (ICD-10-PCS; principal; 2017-04-24)
PROC: 02K83ZZ Map Conduction Mechanism, Percutaneous Approach (ICD-10-PCS; principal; 2017-04-24)
PROC: B245ZZ4 Ultrasonography of Left Heart, Transesophageal (ICD-10-PCS; principal; 2017-04-24)
PROC: 5A1213Z Performance of Cardiac Pacing, Intermittent (ICD-10-PCS; principal; 2017-04-24)
PROC: 02H73MZ Insertion of Cardiac Lead into Left Atrium, Percutaneous Approach (ICD-10-PCS; principal; 2017-04-24)
DX: I48.0 Paroxysmal atrial fibrillation (principal); I08.0 Rheumatic disorders of both mitral and aortic valves; I77.810 Thoracic aortic ectasia; Z23 Encounter for immunization
CPT/HCPCS: 90471; 93005; 93306; 93312; 93613; 93656; 93662; C1893; G0378; C1731; C1732; C1759; G0008; J0461; J1644; J1650; J2250; J2370; J2405; J2704; J2720; J3010; Q9967

== ENCOUNTER → 2017-07-05 | Outpatient (CLI) | payer OTHER | LOC: CIMAGING 08:31 | PROVIDERS: ATTEND Internal Medicine | DX: Z12.31 Encounter for screening mammogram for malignant neoplasm of breast (principal) | CPT/HCPCS: G0202 ==

== ENCOUNTER → 2018-06-27 | Outpatient (CLI) | payer BC | LOC: CIMAGING 07:29 | PROVIDERS: ATTEND Internal Medicine | DX: Z12.31 Encounter for screening mammogram for malignant neoplasm of breast (principal) ==

== ENCOUNTER → 2018-07-26 | Outpatient (CLI) | payer OTHER, MEDICARE | LOC: CIMAGING 13:09 | PROVIDERS: ATTEND Internal Medicine | DX: Z12.31 Encounter for screening mammogram for malignant neoplasm of breast (principal) ==

== ENCOUNTER → 2018-10-07 | Outpatient (CLI) | payer OTHER, MEDICARE | LOC: BHFA 09:30 | PROVIDERS: ATTEND Internal Medicine Cardiovascular Disease | DX: I48.91 Unspecified atrial fibrillation (principal) | CPT/HCPCS: 78452; 93017; A9500; J2785 ==

== ENCOUNTER → 2018-12-20 | Outpatient (CLI) | payer OTHER, MEDICARE | LOC: EMCIMAGING 10:58 ==

== ENCOUNTER → 2019-01-13 | Outpatient (CLI) | payer OTHER, MEDICARE | LOC: BHFA 09:15 ==